=== PATIENT | female | born 1995 | race Caucasian/White ===

== ENCOUNTER 2017-07-24 19:12 | Emergency (ER) | payer MEDICAID, OTHER ==
[2017-07-24 19:25] VITALS: BP 149/59; PULSE 103; O2SAT 100
[2017-07-24] MEDS ORDERED: Zithromax 250 MG TABLET PO ONE (19:30)
[2017-07-24] MEDS ORDERED: NORCO 5/325 MG PO ONE (19:31)
[2017-07-24] MEDS ORDERED: Zithromax 250 MG TABLET ONE (19:33)
[2017-07-24] MEDS ORDERED: NORCO 5/325 MG ONE (19:34)
--- NOTE | 2017-07-24 19:36 | ERPHSYRPT ---
- History of Present Illness Time Seen by Provider: 07/24/17 19:26 Source: patient Exam Limitations: no limitations Patient Subjective Stated Complaint: "I have had a sore throat for the past 2 days. today it is worse" Triage Nursing Assessment: aox3, breathing easy unlabored, skin pink warm dry, steady gait Physician History: FOR THE PAST 3 DAYS PT HAS HAD A SORE THROAT AND COUGH MINIMALLY PRODUCTIVE OF CLEAR PHLEGM; DENIES FEVER, VOMITING, CHEST PAIN, SHORTNESS OF AIR. Allergies/Adverse Reactions: No Known Drug Allergies Allergy (Unverified 02/13/15 17:00) Hx Tetanus, Diphtheria Vaccination/Date Given: No Hx Influenza Vaccination/Date Given: No - Review of Systems Constitutional: No Fever Ears, Nose, & Throat: Throat Pain Respiratory: Cough, No Dyspnea Cardiac: No Chest Pain Abdominal/Gastrointestinal: No Vomiting All Other Systems: Reviewed and Negative - Past Medical History Pertinent Past Medical History: No Neurological History: No Pertinent History ENT History: No Pertinent History Cardiac History: No Pertinent History Respiratory History: No Pertinent History Endocrine Medical History: No Pertinent History Musculoskeletal History: No Pertinent History GI Medical History: No Pertinent History History: No Pertinent History Psycho-Social History: No Pertinent History Female Reproductive Disorders: No Pertinent History - Past Surgical History Past Surgical History: No - Social History Smoking Status: Light tobacco smoker Exposure to second hand smoke: Yes (mild) Drug Use: none - Nursing Vital Signs Nursing Vital Signs: Initial Vital Signs Temperature 97.8 F 07/24/17 19:18 Pulse Rate 103 H 07/24/17 19:18 Respiratory Rate 14 07/24/17 19:18 Blood Pressure 149/59 07/24/17 19:18 O2 Sat by Pulse Oximetry 100 07/24/17 19:18 Pain Scale Pain Intensity 3 - Physical Exam General Appearance: alert Eye Exam: PERRL/EOMI Ears, Nose, Throat Exam: moist mucous membranes, TM abnormal (L) (LEFT TM MILDLY ERYTHEMATOUS), pharyngeal erythema Neck Exam: normal inspection Respiratory Exam: lungs clear Cardiovascular Exam: normal heart sounds Gastrointestinal/Abdomen Exam: soft, normal bowel sounds Back Exam: normal range of motion Extremity Exam: normal inspection, No pedal edema Neurologic Exam: alert, cooperative Skin Exam: warm, dry SpO2 Interpretation: normal SpO2: 100 Oxygen Delivery: Room Air - Course Nursing assessment & vital signs reviewed: Yes Ordered Tests: Medication Summary Generic Name Dose Route Start Last Admin Trade Name Tonyq PRN Reason Stop Dose Admin Hydrocodone Bitart/Acetaminophen 1 tab 07/24/17 19:31 Climax 5/325 Mg PO 07/24/17 19:32 STAT ONE Discontinued Medications Generic Name Dose Route Start Last Admin Trade Name Michaela PRN Reason Stop Dose Admin Azithromycin 500 mg 07/24/17 19:30 Zithromax 250 Mg Tablet PO 07/24/17 19:31 STAT ONE - Departure Time of Disposition: 19:36 Departure Disposition: Home Clinical Impression: PHARYNGITIS, LOM Condition: Stable Critical Care Time: No Instructions: Pharyngitis/Tonsillopharyngitis -- Adult Additional Instructions: FOLLOW UP WITH PRIVATE DOCTOR TOMORROW. Prescriptions: Azithromycin 250 mg [Zithromax 250 MG TABLET] 250 mg PO ZPACK #6 tablet
== END 2017-07-24 19:43 | disposition home or self-care (01) ==
LOC: ED 19:12
DX: J02.9 Acute pharyngitis, unspecified (principal); H66.92 Otitis media, unspecified, left ear
CPT/HCPCS: 99282; 99283; A9270-GY

== ENCOUNTER 2017-12-12 15:06 | Emergency (ER) | payer OTHER ==
--- NOTE | 2017-12-12 15:35 | ERPHSYRPT ---
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 She has one day hx of sinus drng, cough, and left earache. No fever. Nonsmoker. Associated Symptoms: ear pain (L) Allergies/Adverse Reactions: No Known Drug Allergies Allergy (Verified 12/12/17 15:15) Hx Tetanus, Diphtheria Vaccination/Date Given: Yes Hx Influenza Vaccination/Date Given: No Hx Pneumococcal Vaccination/Date Given: No Immunizations Up to Date: Yes - Review of Systems Constitutional: No Fever, No Chills Eyes: No Symptoms, No Vision Changes, No Double Vision Ears, Nose, & Throat: Ear Pain (left), Nose Congestion, No Ear Discharge Respiratory: Cough Abdominal/Gastrointestinal: No Vomiting - Past Medical History Pertinent Past Medical History: No Neurological History: No Pertinent History ENT History: No Pertinent History Cardiac History: No Pertinent History Respiratory History: No Pertinent History Endocrine Medical History: No Pertinent History Musculoskeletal History: No Pertinent History GI Medical History: No Pertinent History History: No Pertinent History Psycho-Social History: No Pertinent History Female Reproductive Disorders: No Pertinent History - Past Surgical History Past Surgical History: No - Social History Smoking Status: Never smoker Exposure to second hand smoke: No Drug Use: none Patient Lives Alone: No - Female History Hx Last Menstrual Period: last month Hx Now: No - Nursing Vital Signs Nursing Vital Signs: Initial Vital Signs Temperature 99.0 F 12/12/17 15:11 Pulse Rate 110 H 12/12/17 15:11 Respiratory Rate 18 12/12/17 15:11 Blood Pressure 176/94 12/12/17 15:11 O2 Sat by Pulse Oximetry 98 12/12/17 15:11 Pain Scale Pain Intensity 3 - Physical Exam General Appearance: alert Eye Exam: bilateral eye: PERRL, EOMI Ear Exam: right ear: TM normal, left ear: TM dull, TM red, bilateral ear: auricle normal, canal normal Throat Exam: pharynx normal Neck Exam: normal inspection, non-tender, supple Cardiovascular/Respiratory Exam: normal breath sounds, regular rate/rhythm Abdominal Exam: non-tender, soft Neurologic Exam: alert, oriented x 3, cooperative, sensation nml, No motor deficits Skin Exam: warm, dry, No rash SpO2 Interpretation: normal SpO2: 98 Oxygen Delivery: Room Air - Course Nursing assessment & vital signs reviewed: Yes - Progress Progress Note: 12/12/17 15:33 Rx amoxil. Instr given. Counseled pt/family regarding: diagnosis, need for follow-up - Departure Time of Disposition: 15:33 Departure Disposition: Home Clinical Impression: Left otitis media Qualifiers: Otitis media type: suppurative Chronicity: acute Recurrence: not specified as recurrent Spontaneous tympanic membrane rupture: without spontaneous rupture Qualified Code(s): H66.002 - Acute suppurative otitis media without spontaneous rupture of ear drum, left ear Upper respiratory infection Qualifiers: URI type: unspecified viral URI Qualified Code(s): J06.9 - Acute upper respiratory infection, unspecified Condition: Stable Critical Care Time: No Referrals: ARTURO MORELOS [Primary Care Provider] - Instructions: Ear Infections (Otitis Media) (DC) Additional Instructions: UPPER RESPIRATORY INFECTIONS 1. The signs and symptoms of a cold may last up to 10 days. These illnesses are due to viruses which are not treatable with antibiotics. 2. The following suggestions can aid in recovery and to minimize symptoms: A. Increase fluid intake. B. Acetaminophen or Ibuprofen as directed. C. Avoid smoking environments as this will increase the risk of developing pneumonia. D. For children, may use a cool mist vaporizer in the child's room. 3. Contact your Family Physician if you note: A. Persisten fever >103 for more than 3 days B. Breathing difficulty C. Productive cough of yellow/green sputum D. Illness greater than 7 days E. Persistent vomiting F. Stiff neck Rx amoxil. Ibuprofen as directed for discomfort. Prescriptions: Amoxicillin [Amoxil] 1 cap PO TID #30 capsule
[2017-12-12 15:44] VITALS: BP 156/80; PULSE 98; O2SAT 99
== END 2017-12-12 15:44 | disposition home or self-care (01) ==
LOC: ED 15:06
DX: H66.002 Acute suppurative otitis media without spontaneous rupture of ear drum, left ear (principal); J06.9 Acute upper respiratory infection, unspecified
CPT/HCPCS: 99282

== ENCOUNTER 2018-04-07 14:06 | Emergency (ER) | payer OTHER ==
[2018-04-07 15:12] VITALS: O2SAT 100
--- NOTE | 2018-04-07 15:35 | ERPHSYRPT ---
- History of Present Illness Time Seen by Provider: 04/07/18 14:50 Source: patient Exam Limitations: other Patient Subjective Stated Complaint: states while at work at [employer] today dropped a wooden pallet on right foot. pain and bruising to right foot. Triage Nursing Assessment: ambulated to room per self. skin w/d, color normal, resp easy. right foot and great toe have swelling and bruising noted. good pedal pulse and good cap refill. Physician History: PATIENT WHILE AT WORK DROPPED A WOOD PALLET OVER RIGHT FOOT SUSTAINED PAIN, SWELLING AND BRUSING OVER FOOT BASE OF GREAT TOE AND 2ND TOE. 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 Method of Injury: direct blow Occurred: just prior to arrival Quality: other (DENIES PAIN) Severity of Pain-Max: none Severity of Pain-Current: none Lower Extremities Pain: foot: right Modifying Factors: Improves With: nothing Associated Symptoms: none Allergies/Adverse Reactions: No Known Drug Allergies Allergy (Verified 04/07/18 14:39) Hx Tetanus, Diphtheria Vaccination/Date Given: No Hx Influenza Vaccination/Date Given: No Hx Pneumococcal Vaccination/Date Given: No - Review of Systems Musculoskeletal: Injury, Joint Swelling, Other (BRUISING) - Past Medical History Pertinent Past Medical History: No Neurological History: No Pertinent History ENT History: No Pertinent History Cardiac History: No Pertinent History Respiratory History: No Pertinent History Endocrine Medical History: No Pertinent History Musculoskeletal History: No Pertinent History GI Medical History: No Pertinent History History: No Pertinent History Psycho-Social History: No Pertinent History Female Reproductive Disorders: No Pertinent History - Past Surgical History Past Surgical History: No - Social History Smoking Status: Former smoker Exposure to second hand smoke: No Drug Use: none Patient Lives Alone: No - Female 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) - Nursing Vital Signs Nursing Vital Signs: Initial Vital Signs Pulse Rate 118 H 04/07/18 14:39 Respiratory Rate 16 04/07/18 14:39 Blood Pressure 132/86 04/07/18 14:39 O2 Sat by Pulse Oximetry 99 04/07/18 14:39 Pain Scale Pain Intensity 5 - Physical Exam Foot Exam: right foot: ecchymosis, pain, soft tissue tenderness, swelling ( TENDERNESS DISTAL 1ST/2ND RIGHT DISTAL 3RD METATARSALS) DTR - Lower Extremities Exam: knee (R): 2+, knee (L): 2+, ankle (R): 2+ Neuro/Tendon Exam: normal motor functions SpO2 Interpretation: normal SpO2: 100 Oxygen Delivery: Room Air - Radiology Exams Right Foot X-ray Interpretation: Interpreted by me, No Fracture (SOFT TISSUE SWELLING) Ordered Tests: Active Orders 24 hr Category Date Time Status FOOT (MINIMUM 3 VIEWS) Stat Exams 04/07/18 16:35 Taken - Progress Counseled pt/family regarding: diagnosis, need for follow-up, rad results - Departure Time of Disposition: 16:43 Departure Disposition: Home Clinical Impression: RIGHT FOOT CONTUSION Condition: Stable Critical Care Time: No Referrals: ARTURO ACUNA [Primary Care Provider] - Additional Instructions: TYLENOL OR MOTRIN NEEDED FOR PAIN. ELEVATE FOOT AND APPLY ICE OVER FOOT SWELLING EVERY 4 HOURS, 30 MINUTES FOR 48 HOURS. CONSULT YOUR PRIMARY CARE PROVIDER FOR FOLLOWUP IN 1 WEEK.
[2018-04-07 16:49] VITALS: BP 137/84; PULSE 106
--- NOTE | 2018-04-07 21:01 | XRAY ---
Indication: First toe pain/bruising following injury. Comparison: None 3 nonweightbearing views of the right foot demonstrates tiny posterior heel spur. No other bony, articular, or soft tissue abnormalities.
== END 2018-04-07 17:09 | disposition home or self-care (01) ==
LOC: ED 14:06
DX: S90.31XA Contusion of right foot, initial encounter (principal); W22.8XXA Striking against or struck by other objects, initial encounter; Y93.89 Activity, other specified; Y92.29 Other specified public building as the place of occurrence of the external cause
CPT/HCPCS: 73630; 99283

== ENCOUNTER 2018-05-06 16:35 | Emergency (ER) | payer OTHER ==
[2018-05-06 16:46] VITALS: BP 147/105; PULSE 103; O2SAT 94
--- NOTE | 2018-05-06 16:47 | ERPHSYRPT ---
- History of Present Illness Time Seen by Provider: 05/06/18 16:45 Source: patient Physician History: mild left ear ache since Sunday, no fever, no hearing loss, speech fluent, no drainage Allergies/Adverse Reactions: No Known Drug Allergies Allergy (Verified 04/07/18 14:39) Hx Tetanus, Diphtheria Vaccination/Date Given: No Hx Influenza Vaccination/Date Given: No Hx Pneumococcal Vaccination/Date Given: No - Review of Systems Constitutional: No Fever Eyes: No Vision Changes Ears, Nose, & Throat: Ear Pain, No Ear Discharge, No Hearing Changes Respiratory: No Cough Cardiac: No Chest Pain Abdominal/Gastrointestinal: No Nausea, No Vomiting Musculoskeletal: No Neck Pain Neurological: No Dizziness - Past Medical History Pertinent Past Medical History: No Neurological History: No Pertinent History ENT History: No Pertinent History Cardiac History: No Pertinent History Respiratory History: No Pertinent History Endocrine Medical History: No Pertinent History Musculoskeletal History: No Pertinent History GI Medical History: No Pertinent History History: No Pertinent History Psycho-Social History: No Pertinent History Female Reproductive Disorders: No Pertinent History - Past Surgical History Past Surgical History: No - Social History Smoking Status: Former smoker Exposure to second hand smoke: No Drug Use: none Patient Lives Alone: No - Nursing Vital Signs Nursing Vital Signs: Initial Vital Signs Temperature 98.4 F 05/06/18 16:42 Pulse Rate 103 H 05/06/18 16:42 Respiratory Rate 16 05/06/18 16:42 Blood Pressure 147/105 05/06/18 16:42 O2 Sat by Pulse Oximetry 94 L 05/06/18 16:42 Pain Scale Pain Intensity 3 - Physical Exam General Appearance: no apparent distress Eye Exam: PERRL/EOMI, eyes nml inspection Ears, Nose, Throat Exam: other (left tm red), No pharyngeal erythema Neck Exam: normal inspection Respiratory Exam: No respiratory distress Neurologic Exam: alert, oriented x 3, cooperative, 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 Skin Exam: normal color - Course Nursing assessment & vital signs reviewed: Yes - Progress Progress: unchanged Progress Note: 05/06/18 16:50 amoxil, motrin, see your doctor, return if worse Counseled pt/family regarding: diagnosis, need for follow-up - Departure Time of Disposition: 16:51 Departure Disposition: Home Clinical Impression: Left otitis media Qualifiers: Otitis media type: unspecified Qualified Code(s): H66.92 - Otitis media, unspecified, left ear Condition: Stable Critical Care Time: No Referrals: ARTURO ACUNA [Primary Care Provider] - Instructions: Ear Infections (Otitis Media) (DC) Prescriptions: Amoxicillin [Amoxil] 1 cap PO TID #30 capsule
== END 2018-05-06 17:07 | disposition home or self-care (01) ==
LOC: ED 16:35
DX: H66.92 Otitis media, unspecified, left ear (principal)
CPT/HCPCS: 99283

== ENCOUNTER 2021-08-13 19:15 | Emergency (ER) | payer OTHER ==
[2021-08-13] MEDS ORDERED: SUBLIMAZE 100 MCG/2 ML IV ONE (19:31)
[2021-08-13] MEDS ORDERED: Zofran 4 MG/2 ML VIAL IV ONE (19:31)
[2021-08-13] MEDS ORDERED: Sodium Chloride 0.9% 1000 ML 1,000 ML IV STA (19:31)
[2021-08-13 19:39] VITALS: BP 129/76; O2SAT 100
[2021-08-13] MEDS ORDERED: Zofran 4 MG/2 ML VIAL ONE ×2 (19:52→19:55)
[2021-08-13] MEDS ORDERED: Sodium Chloride 0.9% 1000 ML 0 ML ONE (19:53)
[2021-08-13] MEDS ORDERED: SUBLIMAZE 100 MCG/2 ML ONE ×2 (19:53→19:55)
[2021-08-13 19:55] LABS: Absolute Neutrophil Ct (ANC) 12.28 (1.4-6.9); BASOPHIL % 0.1 % (0.0-0.4); Basophil (Absolute #) 0.02 (0-0.4); Eosinophil % 0.6 % (0.00-5.0); Eosinophil (Absolute #) 0.09 (0-0.5); Hematocrit 40.1 % (35-47); Hemoglobin 12.8 gm/dl (12.0-16.0); Lymphocyte (Absolute #) 1.55 (1.0-4.6); Lymphocytes % 10.6 % (24.0-44.0); Mean Cell Volume 89.1 fl (78-100); Mean Corpuscular Hemoglobin 28.4 pg (26-32); Mean Corpuscular Hgb Concent. 31.9 g/dl (32-36); Mean Platelet Volume 9.3 fl (7.5-11.0); Monocyte (Absolute #) 0.71 (0.0-1.3); Monocytes % 4.8 % (0.0-12.0); Neutrophil % 83.9 % (36.0-66.0); Platelet Count 298 K/mm3 (150-450); Red Cell Distribution Width 14.1 % (11.5-14.0); White Blood Count 14.7 K/mm3 (4.0-10.5)
[2021-08-13] MEDS ORDERED: Sodium Chloride 0.9% 1000 ML 1,000 ML ONE ×2 (19:55→22:05)
[2021-08-13 20:03] LABS: ALBUMIN 3.9 g/dL (3.5-5.0); ALKALINE PHOSPHATASE 108 U/L (38-126); ANION GAP 9.7 MEQ/L (5-15); BLOOD UREA NITROGEN 9 mg/dL (7-17); CHLORIDE 101 mmol/L (98-107); Calcium 8.6 mg/dL (8.4-10.2); Carbon Dioxide 26 mmol/L (22-30); Creatinine 1 0.77 mg/dL (0.52-1.04); EST GLOMERULAR FILTRATION RATE > 60.0 ML/MIN; Glucose 113 mg/dL (74-106); LIPASE 43 U/L (23-300); Potassium 3.7 mmol/L (3.5-5.1); SGOT/AST 95 U/L (14-36); SGPT/ALT 71 U/L (0-35); SODIUM 134 mmol/L (137-145); Total Protein 7.5 g/dL (6.3-8.2)
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
[2021-08-13 21:24] VITALS: PULSE 125
[2021-08-13] MEDS ORDERED: MOTRIN 600 MG PO ONE (21:29)
[2021-08-13] MEDS ORDERED: Cyclobenzaprine 10 MG PO ONE (21:29)
[2021-08-13] MEDS ORDERED: TYLENOL 325 MG PO ONE (21:29)
[2021-08-13] MEDS ORDERED: MORPHINE SULFATE 4 MG INJ IV ONE (21:31)
[2021-08-13] MEDS ORDERED: Cyclobenzaprine 10 MG ONE (21:33)
[2021-08-13] MEDS ORDERED: TYLENOL 325 MG ONE (21:33)
[2021-08-13] MEDS ORDERED: MOTRIN 600 MG ONE (21:33)
[2021-08-13] MEDS ORDERED: MORPHINE SULFATE 4 MG INJ ONE (21:36)
[2021-08-13 22:11] LABS: Appearance CLEAR (CLEAR); Bilirubin NEGATIVE (NEGATIVE); Blood NEGATIVE Ery/ul (0-5); Glucose NEGATIVE (NEGATIVE); Ketones SMALL (NEGATIVE); Leukocyte Esterase NEGATIVE (NEGATIVE); Mucus SLIGHT /HPF (NEGATIVE); Nitrite NEGATIVE (NEGATIVE); Protein,Urine Dip NEGATIVE (Negative); RBC 0-2 /HPF (0-2); Urobilinogen 4 mg/dL (0-1)
[2021-08-13] MEDS ORDERED: Sodium Chloride 0.9% 1000 ML 1,000 ML IV SCH (22:15)
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
== END 2021-08-13 22:36 | disposition short-term general hospital (02) ==
LOC: ED 19:15
DX: S22.42XA Multiple fractures of ribs, left side, initial encounter for closed fracture (principal); S00.03XA Contusion of scalp, initial encounter; S80.02XA Contusion of left knee, initial encounter; V49.88XA Car occupant (driver) (passenger) injured in other specified transport accidents, initial encounter
CPT/HCPCS: 36000; 36415; 70450; 71045; 71260; 72125; 73562; 74177; 80053; 81001; 81025; 83690; 84484; 85025; 87086; 93005; 96360; 96374; 99285; 99291; P9612; J2270; J2405; J3010; A9270-GY